=== PATIENT | male | born 1990 | race American Indian/Alaskan Native ===

== ENCOUNTER 2023-01-23 09:49 | Day surgery (SDC) | payer OTHER ==
[2023-01-22 10:30] LABS: BASOPHILS # (AUTO) 0.1 X10'3 (0-0.2); BASOPHILS % (AUTO) 1.2 % (0-1); EOSINOPHILS # (AUTO) 0.4 X10'3 (0-0.9); EOSINOPHILS % (AUTO) 6.6 % (0-6); LYMPHOCYTES # (AUTO) 1.5 X10'3 (1.1-4.8); LYMPHOCYTES % (AUTO) 27.1 % (21-51); MEAN CORPUSCULAR HEMOGLOBIN 30.8 PG (27.0-31.0); MEAN CORPUSCULAR HGB CONC 33.6 g/dL (33.0-36.5); MEAN CORPUSCULAR VOLUME 91.7 FL (78-98); MEAN PLATELET VOLUME 8.9 FL (7.4-10.4); MONOCYTES # (AUTO) 0.6 X10'3 (0-0.9); MONOCYTES % (AUTO) 11.1 % (2-12); PRE OP HEMATOCRIT 44.7 % (42.0-52.0); PRE OP PLATELET COUNT 229 X10'3 (140-440); PRE OP WHITE BLOOD COUNT 5.6 10'3 (4.8-10.8); RED BLOOD COUNT 4.88 X10'6 (4.70-6.10); RED CELL DISTRIBUTION WIDTH 13.4 % (11.5-14.5)
[2023-01-22 10:54] LABS: BLOOD UREA NITROGEN 10 MG/DL (7-18)
[2023-01-22 10:58] LABS: ALBUMIN 3.9 G/DL (3.4-5.0); ALBUMIN/GLOBULIN RATIO 1.1 (1.1-1.5); ALKALINE PHOSPHATASE 54 IU/L (46-116); BUN/CREATININE RATIO 11.8 (10.0-20.0); CALCIUM 8.9 MG/DL (8.5-10.1); CHLORIDE 103 MMOL/L (99-107); CREATININE 0.85 MG/DL (0.60-1.10); PRE OP ALT 22 U/L (30-65); PRE OP ANION GAP 6 (8-16); PRE OP AST 15 U/L (10-37); PRE OP BILIRUB, TOTAL 0.3 MG/DL (0.0-1.0); PRE OP GLUCOSE 90 MG/DL (70-104); PRE OP SODIUM 138 MMOL/L (135-145); TOTAL CARBON DIOXIDE 29.1 MMOL/L (24-32); TOTAL PROTEIN 7.6 G/DL (6.4-8.2); eGFR > 90 ML/MIN
[2023-01-23] VITALS (16 sets, daily range): BP systolic 117–136; BP diastolic 59–86; PULSE 54–86; RESP 9–18; TEMP 97.4; O2SAT 97–100
[~2023-01-23] VITALS: Ht 180.3 cm; Wt 74.0 kg
[~2023-01-23 09:49] MED LIST: BUDE10.22 PO; CETI-90 PO; HYDR-3686 PO; cefazolin 2gm/D5W 100mL 100 ML IV ONE; famotidine 20mg tablet PO ONE; ringers solution, lacted 1,000 ML IV SCH
[2023-01-23] MEDS ORDERED: BUPIVAcaine/PF 2.5mg/ml (0.25%) 10ml vial ONE (13:08)
[2023-01-23] MEDS ORDERED: LIDOcaine 1% 30ml preserv. free vial ONE (13:08)
[2023-01-23] MEDS ORDERED: sevoflurane 250ml liquid IH ONE (13:25)
[2023-01-23] MEDS ORDERED: acetaminophen 1000 MG/100ml vial IV ONE (13:25)
[2023-01-23] MEDS ORDERED: fentaNYL/PF 50MCG/1 ML 2ML syringe ONE (13:29)
[2023-01-23] MEDS ORDERED: midazolam 1 mg/ML 2ml injection ONE (13:29)
[2023-01-23] MEDS ORDERED: meperidine/PF 25mg/ml syringe IV PRN ×3 (13:30)
[2023-01-23] MEDS ORDERED: ringers solution, lacted 1,000 ML IV SCH (13:30)
[2023-01-23] MEDS ORDERED: ondansetron/PF 4mg/2ml inj IV PRN (13:30)
[2023-01-23] MEDS ORDERED: morphine 2 MG/ML inj. syringe IV PRN (13:30)
[2023-01-23] MEDS ORDERED: morphine 4 MG/ML inj SYRINge IV PRN (13:30)
[2023-01-23] MEDS ORDERED: proCHLORperazine 10 MG/2 ml inj IV PRN (13:30)
--- NOTE | 2023-01-23 15:02 | NUR ---
Received from OR via [facility], accompanied by Anesthesiologist DR SANCHEZ and report given by Anesthesiologist AND TAX TECHNICIAN. PT W/LMA IN PLACE, VERY DROWSY. ABDOMEN W/3 LAP SITES W/BANDAIDS CDI. DR SANCHEZ D/CD LMA, PT REMAINS DROWSY, NO S/S OF DISTRESS/DISCOMFORT.
[2023-01-23] MEDS ORDERED: HYDROcodone/acetaminophen 5mg/325mg tablet PO PRN (15:15)
--- NOTE | 2023-01-23 17:02 | NUR ---
PT UP AMBULATING, ATTEMPTING TO VOID. DECLINES PAIN MEDICATION AT THIS TIME, STATES HE IS OKAY W/CURRENT PAIN LEVEL. Addendum: 01/23/23 at 1703 by Zoya Gamez RN Amended: Links added.
--- NOTE | 2023-01-23 17:42 | NUR ---
PT UP AND ABLE TO AMBULATE SAFELY, VOIDED X 1, BLADDER SCANNED FOR 0. D/C INSTRUCTIONS GIVEN AND GONE OVER W/PT WHO VERBALIZED UNDERSTANDING. PT D/CD TO HOME VIA W/C TO PRIVATE VEHICLE W/O INCIDENT. Addendum: 01/23/23 at 1803 by Zoya Gamez RN Amended: Links added.
[2023-01-23] MEDS ORDERED: rocuronium 10mg/ml inj IV ONE (17:52)
[2023-01-23] MEDS ORDERED: LIDOcaine 2% (20mg/ml) 5ml vial ONE (17:52)
[2023-01-23] MEDS ORDERED: glycopyrrolate 0.2mg/ml inj ONE (17:52)
[2023-01-23] MEDS ORDERED: ondansetron/PF 4mg/2ml inj ONE (17:52)
[2023-01-23] MEDS ORDERED: dexamethasone sod phosphate 4mg/ml inj. ONE (17:52)
[2023-01-23] MEDS ORDERED: neostigmine methylsulfate 1 MG/ML 10ml vial ONE (17:52)
[2023-01-23] MEDS ORDERED: propofol inj 20 ML IV ONE (17:52)
== END 2023-01-23 17:42 | disposition home or self-care (01) ==
LOC: PAS 09:49
PROVIDERS: ATTEND Surgery
DX: K40.90 Unilateral inguinal hernia, without obstruction or gangrene, not specified as recurrent (principal); K42.9 Umbilical hernia without obstruction or gangrene; F41.9 Anxiety disorder, unspecified; F32.A Depression, unspecified; J45.909 Unspecified asthma, uncomplicated; G47.00 Insomnia, unspecified; Z98.890 Other specified postprocedural states; Z79.899 Other long term (current) drug therapy; F17.290 Nicotine dependence, other tobacco product, uncomplicated; Z72.89 Other problems related to lifestyle; F12.90 Cannabis use, unspecified, uncomplicated; Z91.018 Allergy to other foods; Z91.048 Other nonmedicinal substance allergy status; Z82.49 Family history of ischemic heart disease and other diseases of the circulatory system
CPT/HCPCS: 36415; 49591; 49650; 80053; 82948; 85025; 93005; C1781; J0131; J0690; J1100; J2175; J2250; J2405; J2704; J2710; J3010; J3490; J7030; J7120; S2900; Z7506; Z7508; Z7512; A4215; A4618